=== PATIENT | female | born 1980 | race Caucasian/White ===

== ENCOUNTER 2025-07-19 10:05 | Outpatient (CLI) | payer SELFPAY ==
[2025-07-19 08:51] LABS: Abs Immature Grans 0.05 10^3/uL (0.0-0.06); HCT 44.4 % (36.0-46.0); HGB 14.0 g/dL (11.2-15.7); Immature Grans % 0.6 %; MCH 27.0 pg (27.0-33.0); MCHC 31.5 % (32.0-36.0); MCV 86 fL (80-95); MPV 10.5 fL (8.0-11.0); Platelet Count 220 10^3/uL (130-400); RBC 5.19 10^6/uL (3.93-5.22); RDW 15.5 % (11.7-14.6); RDW-SD 48.2 fL; WBC 7.87 10^3/uL (4.4-10.8)
[2025-07-19 09:22] LABS: ALT 23 U/L (14-59); AST 9 U/L (15-37); Albumin 3.7 g/dL (3.4-5.0); Alkaline Phosphatase 82 U/L (46-116); Anion Gap 8.9 mmol/L (3-11); BUN 13 mg/dL (7-18); Bilirubin, Total 0.4 mg/dL (0.2-1.0); CO2 26.1 mmol/L (21.0-32.0); Calcium 9.4 mg/dL (8.5-10.1); Chloride 105 mmol/L (98-107); Estimated GFR 62.37 (mL/min/1.73m2); Glucose 156 mg/dL (74-106); Potassium 4.4 mmol/L (3.5-5.1); Sodium 140 mmol/L (136-145); Total Protein 7.4 g/dL (6.4-8.2)
[2025-07-19 10:28] LABS: Magnesium 2.1 mg/dL (1.8-2.4)
== END 2025-07-19 10:06 | disposition home or self-care (01) ==
LOC: LBO 10:05
PROVIDERS: PCP Physician Assistant; Visit Provider Nurse Practitioner
DX: C09.9 Malignant neoplasm of tonsil, unspecified (principal)
CPT/HCPCS: 36415; 80053; 83735; 85025

== ENCOUNTER 2025-07-25 07:22 | Outpatient (CLI) | payer SELFPAY ==
[2025-07-25 11:00] LABS: Abs Immature Grans 0.06 10^3/uL (0.0-0.06); HCT 43.7 % (36.0-46.0); HGB 14.1 g/dL (11.2-15.7); Immature Grans % 0.7 %; MCH 27.0 pg (27.0-33.0); MCHC 32.3 % (32.0-36.0); MCV 84 fL (80-95); MPV 10.8 fL (8.0-11.0); Platelet Count 210 10^3/uL (130-400); RBC 5.22 10^6/uL (3.93-5.22); RDW 14.7 % (11.7-14.6); RDW-SD 45.1 fL; WBC 8.99 10^3/uL (4.4-10.8)
[2025-07-25 11:25] LABS: ALT 24 U/L (14-59); AST 10 U/L (15-37); Albumin 3.6 g/dL (3.4-5.0); Alkaline Phosphatase 84 U/L (46-116); Anion Gap 8.7 mmol/L (3-11); BUN 14 mg/dL (7-18); Bilirubin, Total 0.6 mg/dL (0.2-1.0); CO2 23.3 mmol/L (21.0-32.0); Calcium 9.0 mg/dL (8.5-10.1); Chloride 104 mmol/L (98-107); Estimated GFR 56.19 (mL/min/1.73m2); Glucose 177 mg/dL (74-106); Magnesium 1.8 mg/dL (1.8-2.4); Potassium 3.9 mmol/L (3.5-5.1); Sodium 136 mmol/L (136-145); Total Protein 7.4 g/dL (6.4-8.2)
== END 2025-07-25 07:23 | disposition home or self-care (01) ==
LOC: LBO 07-26 07:22
PROVIDERS: PCP Physician Assistant; Visit Provider Nurse Practitioner
DX: C09.9 Malignant neoplasm of tonsil, unspecified (principal)
CPT/HCPCS: 36415; 80053; 83735; 85025

== ENCOUNTER 2025-08-01 09:10 | Outpatient (CLI) | payer SELFPAY ==
[2025-08-01 09:20] LABS: Magnesium 2.0 mg/dL (1.8-2.4)
[2025-08-01 10:21] LABS: Abs Immature Grans 0.05 10^3/uL (0.0-0.06); HCT 42.5 % (36.0-46.0); HGB 13.6 g/dL (11.2-15.7); Immature Grans % 0.5 %; MCH 27.0 pg (27.0-33.0); MCHC 32.0 % (32.0-36.0); MCV 85 fL (80-95); MPV 10.7 fL (8.0-11.0); Platelet Count 186 10^3/uL (130-400); RBC 5.03 10^6/uL (3.93-5.22); RDW 14.6 % (11.7-14.6); RDW-SD 44.4 fL; WBC 10.06 10^3/uL (4.4-10.8)
[2025-08-01 10:52] LABS: Anion Gap 11.0 mmol/L (3-11); BUN 18 mg/dL (7-18); CO2 25.0 mmol/L (21.0-32.0); Calcium 9.2 mg/dL (8.5-10.1); Chloride 103 mmol/L (98-107); Estimated GFR 51.04 (mL/min/1.73m2); Glucose 166 mg/dL (74-106); Potassium 4.2 mmol/L (3.5-5.1); Sodium 139 mmol/L (136-145)
[2025-08-01 11:29] LABS: ALT 29 U/L (14-59); AST 13 U/L (15-37); Albumin 3.4 g/dL (3.4-5.0); Alkaline Phosphatase 73 U/L (46-116); Bilirubin, Total 0.6 mg/dL (0.2-1.0); Total Protein 7.0 g/dL (6.4-8.2)
== END 2025-08-01 09:11 | disposition home or self-care (01) ==
LOC: LBO 09:11
PROVIDERS: PCP Physician Assistant; Visit Provider Nurse Practitioner
DX: C09.9 Malignant neoplasm of tonsil, unspecified (principal)
CPT/HCPCS: 36415; 80053; 83735; 85025

== ENCOUNTER 2025-08-08 09:28 | Outpatient (CLI) | payer SELFPAY ==
[2025-08-08 08:09] LABS: Abs Immature Grans 0.02 10^3/uL (0.0-0.06); HCT 43.1 % (36.0-46.0); HGB 14.0 g/dL (11.2-15.7); Immature Grans % 0.3 %; MCH 27.1 pg (27.0-33.0); MCHC 32.5 % (32.0-36.0); MCV 84 fL (80-95); MPV 10.3 fL (8.0-11.0); Platelet Count 156 10^3/uL (130-400); RBC 5.16 10^6/uL (3.93-5.22); RDW 14.5 % (11.7-14.6); RDW-SD 43.7 fL; WBC 6.01 10^3/uL (4.4-10.8)
[2025-08-08 08:42] LABS: ALT 54 U/L (14-59); AST 17 U/L (15-37); Albumin 3.7 g/dL (3.4-5.0); Alkaline Phosphatase 70 U/L (46-116); Anion Gap 9.6 mmol/L (3-11); BUN 17 mg/dL (7-18); Bilirubin, Total 0.7 mg/dL (0.2-1.0); CO2 24.4 mmol/L (21.0-32.0); Calcium 9.2 mg/dL (8.5-10.1); Chloride 104 mmol/L (98-107); Estimated GFR 46.70 (mL/min/1.73m2); Glucose 166 mg/dL (74-106); Magnesium 1.7 mg/dL (1.8-2.4); Potassium 4.1 mmol/L (3.5-5.1); Sodium 138 mmol/L (136-145); Total Protein 7.3 g/dL (6.4-8.2)
== END 2025-08-08 09:29 | disposition home or self-care (01) ==
LOC: LBO 09:28
PROVIDERS: PCP Physician Assistant; Visit Provider Nurse Practitioner
DX: C09.9 Malignant neoplasm of tonsil, unspecified (principal)
CPT/HCPCS: 36415; 80053; 83735; 85025

== ENCOUNTER 2025-08-15 07:22 | Outpatient (CLI) | payer SELFPAY ==
[2025-08-15 08:19] LABS: Abs Immature Grans 0.02 10^3/uL (0.0-0.06); HCT 43.6 % (36.0-46.0); HGB 13.9 g/dL (11.2-15.7); Immature Grans % 0.4 %; MCH 26.6 pg (27.0-33.0); MCHC 31.9 % (32.0-36.0); MCV 84 fL (80-95); MPV 10.2 fL (8.0-11.0); Platelet Count 109 10^3/uL (130-400); RBC 5.22 10^6/uL (3.93-5.22); RDW 14.9 % (11.7-14.6); RDW-SD 43.8 fL; WBC 4.55 10^3/uL (4.4-10.8)
[2025-08-15 09:17] LABS: ALT 78 U/L (14-59); AST 30 U/L (15-37); Albumin 3.8 g/dL (3.4-5.0); Alkaline Phosphatase 68 U/L (46-116); Anion Gap 11.1 mmol/L (3-11); BUN 27 mg/dL (7-18); Bilirubin, Total 0.7 mg/dL (0.2-1.0); CO2 25.9 mmol/L (21.0-32.0); Calcium 9.4 mg/dL (8.5-10.1); Chloride 103 mmol/L (98-107); Estimated GFR 42.99 (mL/min/1.73m2); Glucose 140 mg/dL (74-106); Magnesium 2.0 mg/dL (1.8-2.4); Potassium 3.7 mmol/L (3.5-5.1); Sodium 140 mmol/L (136-145); Total Protein 7.3 g/dL (6.4-8.2)
== END 2025-08-15 07:23 | disposition home or self-care (01) ==
LOC: LBO 08-16 07:22
PROVIDERS: Visit Provider Nurse Practitioner
DX: C09.9 Malignant neoplasm of tonsil, unspecified (principal)
CPT/HCPCS: 36415; 80053; 83735; 85025

== ENCOUNTER 2025-08-22 08:32 | Outpatient (CLI) | payer SELFPAY ==
[2025-08-22 08:06] LABS: Abs Immature Grans 0.02 10^3/uL (0.0-0.06); HCT 41.1 % (36.0-46.0); HGB 13.4 g/dL (11.2-15.7); Immature Grans % 0.7 %; MCH 27.3 pg (27.0-33.0); MCHC 32.6 % (32.0-36.0); MCV 84 fL (80-95); MPV 10.5 fL (8.0-11.0); RBC 4.91 10^6/uL (3.93-5.22); RDW 15.8 % (11.7-14.6); RDW-SD 44.6 fL; WBC 3.05 10^3/uL (4.4-10.8)
[2025-08-22 08:24] LABS: ALT 60 U/L (14-59); AST 20 U/L (15-37); Albumin 3.8 g/dL (3.4-5.0); Alkaline Phosphatase 63 U/L (46-116); Anion Gap 14.0 mmol/L (3-11); BUN 37 mg/dL (7-18); Bilirubin, Total 0.8 mg/dL (0.2-1.0); CO2 24.0 mmol/L (21.0-32.0); Calcium 9.1 mg/dL (8.5-10.1); Chloride 103 mmol/L (98-107); Estimated GFR 42.99 (mL/min/1.73m2); Glucose 161 mg/dL (74-106); Magnesium 1.7 mg/dL (1.8-2.4); Potassium 4.4 mmol/L (3.5-5.1); Sodium 141 mmol/L (136-145); Total Protein 7.0 g/dL (6.4-8.2)
[2025-08-22 08:48] LABS: Platelet Count 56 10^3/uL (130-400); RBC Morphology Normal
== END 2025-08-22 08:33 | disposition home or self-care (01) ==
LOC: LBO 08:33
PROVIDERS: Visit Provider Nurse Practitioner
DX: C09.9 Malignant neoplasm of tonsil, unspecified (principal)
CPT/HCPCS: 36415; 80053; 83735; 85025

== ENCOUNTER 2025-08-29 09:50 | Outpatient (CLI) | payer SELFPAY ==
[2025-08-29 08:11] LABS: Abs Immature Grans 0.01 10^3/uL (0.0-0.06); HCT 45.0 % (36.0-46.0); HGB 14.2 g/dL (11.2-15.7); Immature Grans % 0.4 %; MCH 26.6 pg (27.0-33.0); MCHC 31.6 % (32.0-36.0); MCV 84 fL (80-95); MPV 11.1 fL (8.0-11.0); Platelet Count 102 10^3/uL (130-400); RBC 5.33 10^6/uL (3.93-5.22); RDW 16.8 % (11.7-14.6); RDW-SD 45.8 fL; WBC 2.65 10^3/uL (4.4-10.8)
[2025-08-29 08:25] LABS: ALT 96 U/L (14-59); AST 29 U/L (15-37); Albumin 3.8 g/dL (3.4-5.0); Alkaline Phosphatase 63 U/L (46-116); Anion Gap 17.6 mmol/L (3-11); BUN 34 mg/dL (7-18); Bilirubin, Total 1.1 mg/dL (0.2-1.0); CO2 22.4 mmol/L (21.0-32.0); Calcium 9.6 mg/dL (8.5-10.1); Chloride 100 mmol/L (98-107); Estimated GFR 39.78 (mL/min/1.73m2); Glucose 146 mg/dL (74-106); Magnesium 1.8 mg/dL (1.8-2.4); Potassium 3.9 mmol/L (3.5-5.1); Sodium 140 mmol/L (136-145); Total Protein 7.5 g/dL (6.4-8.2)
== END 2025-08-29 09:51 | disposition home or self-care (01) ==
LOC: LBO 09:52
PROVIDERS: Visit Provider Nurse Practitioner
DX: C09.9 Malignant neoplasm of tonsil, unspecified (principal)
CPT/HCPCS: 36415; 80053; 83735; 85025

== ENCOUNTER 2025-09-12 03:06 | Outpatient (CLI) | payer OTHER, SELFPAY ==
[2025-09-12 12:46] LABS: Abs Immature Grans 0.10 10^3/uL (0.0-0.06); HCT 40.9 % (36.0-46.0); HGB 13.6 g/dL (11.2-15.7); MCH 27.4 pg (27.0-33.0); MCHC 33.3 % (32.0-36.0); MCV 83 fL (80-95); MPV 10.1 fL (8.0-11.0); RBC 4.96 10^6/uL (3.93-5.22); RDW 17.0 % (11.7-14.6); RDW-SD 49.1 fL
[2025-09-12 13:05] LABS: ALT 42 U/L (14-59); AST 20 U/L (15-37); Albumin 3.3 g/dL (3.4-5.0); Alkaline Phosphatase 64 U/L (46-116); Anion Gap 17.4 mmol/L (3-11); BUN 17 mg/dL (7-18); Bilirubin, Total 0.8 mg/dL (0.2-1.0); CO2 22.6 mmol/L (21.0-32.0); Calcium 9.8 mg/dL (8.5-10.1); Chloride 96 mmol/L (98-107); Estimated GFR 56.19 (mL/min/1.73m2); Glucose 157 mg/dL (74-106); Magnesium 1.6 mg/dL (1.8-2.4); Potassium 4.0 mmol/L (3.5-5.1); Sodium 136 mmol/L (136-145); Total Protein 7.1 g/dL (6.4-8.2)
[2025-09-12 13:14] LABS: Platelet Count 141 10^3/uL (130-400)
[2025-09-12 13:15] LABS: RBC Morphology Normal
[2025-09-12 13:22] LABS: WBC 1.91 10^3/uL (4.4-10.8)
== END 2025-09-12 03:07 | disposition home or self-care (01) ==
PROVIDERS: Visit Provider Nurse Practitioner
DX: C09.9 Malignant neoplasm of tonsil, unspecified (principal)
CPT/HCPCS: 36415; 80053; 83735; 85025

== ENCOUNTER 2025-09-19 03:52 | Outpatient (CLI) | payer OTHER, SELFPAY ==
[2025-09-19 09:51] LABS: Abs Immature Grans 0.85 10^3/uL (0.0-0.06); HCT 36.2 % (36.0-46.0); HGB 11.9 g/dL (11.2-15.7); MCH 27.7 pg (27.0-33.0); MCHC 32.9 % (32.0-36.0); MCV 84 fL (80-95); MPV 10.6 fL (8.0-11.0); RBC 4.30 10^6/uL (3.93-5.22); RDW 18.6 % (11.7-14.6); RDW-SD 52.1 fL; WBC 7.69 10^3/uL (4.4-10.8)
[2025-09-19 09:56] LABS: ALT 34 U/L (14-59); AST 26 U/L (15-37); Albumin 2.5 g/dL (3.4-5.0); Alkaline Phosphatase 67 U/L (46-116); Anion Gap 11.1 mmol/L (3-11); BUN 5 mg/dL (7-18); Bilirubin, Total 0.7 mg/dL (0.2-1.0); CO2 23.9 mmol/L (21.0-32.0); Calcium 8.2 mg/dL (8.5-10.1); Chloride 105 mmol/L (98-107); Glucose 176 mg/dL (74-106); Magnesium 1.4 mg/dL (1.8-2.4); Potassium 3.4 mmol/L (3.5-5.1); Sodium 140 mmol/L (136-145); Total Protein 5.7 g/dL (6.4-8.2)
[2025-09-19 10:31] LABS: Anisocytosis 2+; Immature Grans % 0.0 %
[2025-09-19 10:32] LABS: Microcytosis 2+; Polychromasia Present
[2025-09-19 10:33] LABS: Platelet Count 86 10^3/uL (130-400)
== END 2025-09-19 03:53 | disposition home or self-care (01) ==
LOC: LBO 03:52
PROVIDERS: Visit Provider Nurse Practitioner
DX: C09.9 Malignant neoplasm of tonsil, unspecified (principal)
CPT/HCPCS: 36415; 80053; 83735; 85025

== ENCOUNTER 2025-10-10 03:59 | Outpatient (CLI) | payer OTHER, SELFPAY ==
[2025-10-10 10:59] LABS: Abs Immature Grans 0.04 10^3/uL (0.0-0.06); HCT 30.2 % (36.0-46.0); HGB 9.7 g/dL (11.2-15.7); Immature Grans % 0.9 %; MCH 28.9 pg (27.0-33.0); MCHC 32.1 % (32.0-36.0); MCV 90 fL (80-95); MPV 9.6 fL (8.0-11.0); Platelet Count 185 10^3/uL (130-400); RBC 3.36 10^6/uL (3.93-5.22); RDW 22.8 % (11.7-14.6); RDW-SD 71.6 fL; WBC 4.41 10^3/uL (4.4-10.8)
[2025-10-10 11:13] LABS: Anisocytosis 2+; Polychromasia Present
[2025-10-10 11:17] LABS: Magnesium 1.3 mg/dL (1.6-2.6)
[2025-10-10 11:19] LABS: ALT 13 U/L (10-49); AST 23 U/L (<34); Albumin 2.9 g/dL (3.4-5.0); Alkaline Phosphatase 75 U/L (46-116); Anion Gap 10.4 mmol/L (3-11); BUN 6 mg/dL (9-23); Bilirubin, Total 0.90 mg/dL (0.2-1.2); CO2 26.6 mmol/L (20.0-31.0); Calcium 7.7 mg/dL (8.3-10.6); Chloride 108 mmol/L (98-107); Glucose 111 mg/dL (74-106); Potassium 3.9 mmol/L (3.5-5.1); Sodium 145 mmol/L (136-145); Total Protein 5.3 g/dL (5.7-8.2)
== END 2025-10-10 04:00 | disposition home or self-care (01) ==
LOC: LBO 03:59
PROVIDERS: Visit Provider Nurse Practitioner
DX: C09.9 Malignant neoplasm of tonsil, unspecified (principal)
CPT/HCPCS: 36415; 80053; 83735; 85025

== ENCOUNTER 2025-11-14 11:52 | Outpatient (CLI) | payer OTHER, SELFPAY ==
[2025-11-14 10:21] LABS: Abs Immature Grans 0.04 10^3/uL (0.0-0.06); HCT 36.9 % (36.0-46.0); HGB 11.6 g/dL (11.2-15.7); Immature Grans % 0.8 %; MCH 30.7 pg (27.0-33.0); MCHC 31.4 % (32.0-36.0); MCV 98 fL (80-95); MPV 10.9 fL (8.0-11.0); Platelet Count 159 10^3/uL (130-400); RBC 3.78 10^6/uL (3.93-5.22); RDW 14.2 % (11.7-14.6); RDW-SD 50.9 fL; WBC 4.82 10^3/uL (4.4-10.8)
[2025-11-14 10:57] LABS: ALT 11 U/L (10-49); AST 17 U/L (<34); Albumin 3.1 g/dL (3.2-5.0); Alkaline Phosphatase 72 U/L (46-116); Anion Gap 10 mmol/L (3-11); BUN 12 mg/dL (9-23); Bilirubin, Total 0.5 mg/dL (0.2-1.2); CO2 28.0 mmol/L (20.0-31.0); Calcium 8.5 mg/dL (8.3-10.6); Chloride 106 mmol/L (98-107); Glucose 109 mg/dL (74-106); Magnesium 1.6 mg/dL (1.6-2.6); Potassium 3.3 mmol/L (3.5-5.1); Sodium 144 mmol/L (136-145); Total Protein 5.8 g/dL (5.7-8.2)
== END 2025-11-14 11:53 | disposition home or self-care (01) ==
LOC: LBO 11:53
PROVIDERS: Visit Provider Nurse Practitioner
DX: C09.9 Malignant neoplasm of tonsil, unspecified (principal)
CPT/HCPCS: 36415; 80053; 83735; 85025